=== PATIENT | female | born 1990 | race Caucasian/White ===

== ENCOUNTER 2016-06-13 12:10 | Day surgery (SDC) | payer OTHER ==
[~2016-06-13] VITALS: Ht 162.6 cm; Wt 79.4 kg
[~2016-06-13 12:10] MED LIST: 0.9% Sodium Chloride 1,000 ML IV PRN; INUL1TAB3 PO; LACT1TAB11 PO; MULT1CAP33 PO; OMEP20TA24 PO; Sodium Chloride LOK Flush 10 mL Syringe IV PRN; fentaNYL-PF 50 mCg/mL 2 mL Inj IVPUSH PRN
[2016-06-13 13:38] VITALS: BP 121/68; PULSE 67; RESP 16; O2SAT 100
--- NOTE | 2016-06-13 14:59 | PCM.ENDCOL ---
Colonoscopy Date of Service: Jun 13, 2016 Physician Adam King MD Pre Procedure Diagnosis: Blood in the stools constipation Post Procedure Dx & Findings: Hemorrhoids Procedure Colonoscopy PROCEDURE IN DETAIL: Prep adequate Withdrawal time 9 minutes After unremarkable rectal examination the Olympus video colonoscope was inserted patient's anal canal and was advanced to cecum. Landmarks were identified including the ileocecal valve and appendiceal orifice. Scope was withdrawn systematically. Visualized colonic mucosa showed healthy shiny mucosa with normal healthy-appearing vasculature. We advanced 10 cm the terminal ileum which showed normal villous structure without ulcer or mass erosion. In the ileocecal valve, there was a 1 mm erosion which was biopsied using cold forceps. In the rectum retroflexion was done which showed hemorrhoids. Anal canal was inspected carefully on the way out and hemorrhoids noted. Impression 1 mm erosion at the IC valve. Normal TI Hemorrhoids Recommendation Repeat colonoscopy in 50 years old if There is no family history of colon cancer or polyp. Presedation Assessment Risks and Benefits Informed consent was obtained from the patient after all risks and benefits including but not limited to drug reaction, infection, pain, bleeding, perforation, as well as alternatives were discussed. Patient monitoring Continuous pulse oximetry, cardiac monitoring, blood pressure monitoring, IV access, and oxygen at 2L per nasal cannula. Periprocedural Fentanyl: Fentanyl 125mcg Incrementally Midazolam: Midazolam 7mg Incrementally Complications There were no periprocedural complications identified. Post Procedure Plan Post Procedure Recommendations 1. Restrict activities today. 2. Resume normal activities in the morning. 3. Resume medications. 4. Patient informed of normal post procedure side effects as bloating, drowsiness, blood streaking in the stool. 5. average risk CRCS. If colon polyps come back as: -Hyperplastic- can repeat colonoscopy in 10 years -Tubular adenoma- repeat colonoscopy in 5 years -Tubulovillous/villous adenoma- repeat colonoscopy in 3 years -If any dysplasia- return to clinic as soon as possible 6. Please don't hesitate to call me with any questions. Adam King MD Jun 13, 2016 14:59
[2016-06-13 15:06] VITALS: BP 104/50; PULSE 75; RESP 16; O2SAT 98
[2016-06-13 15:27] VITALS: BP 102/53; PULSE 74; RESP 16; O2SAT 100
[2016-06-13 15:36] VITALS: BP 120/66; PULSE 64; RESP 16; O2SAT 100
--- NOTE | 2016-06-15 15:08 | PATH ---
SURGICAL PATHOLOGY Attending Physician:Adam King M.D. CASE STATUS: Signed Out PATIENT NAME: ZONIA KIRBY PID: [id number] : 1990 DATE COLLECTED:06/13/2016 00:00 SPECIMEN: Small Intestine/Bowel, Biopsy CLINICAL HISTORY: EROSION 1). ILEAL CECAL VALVE FINAL DIAGNOSIS: 1.ILEOCECAL VALVE, BIOPSY: SMALL BOWEL MUCOSA WITH PROMINENT BENIGN LYMPHOID AGGREGATES CONSISTENT WITH PEYER' S PATCH. Negative for active inflammation, dysplasia or malignancy. ICD10 code R10.9 GROSS DESCRIPTION: The specimen is received in one formalin filled container labeled with the patient's name, sublabeled "ileal cecal erosion" and consists of a 0.2 x 0.2 x 0.2 CM portion of tissue which is entirely submitted in one cassette. 06/14/2016 DAC MICRO DESCRIPTION: See diagnosis. ICD-9 CODES: CPT CODES: 1: 43082 Electronically Signed Out Anamaria Huff MD [facility]ly [facility] Pathology [facility] [address], [place] [address] Technical component performed at [facility], [facility] [address], [place], [address]
== END 2016-06-13 23:59 | disposition home or self-care (01) ==
LOC: END 12:10
PROVIDERS: ATTEND Internal Medicine
DX: K92.1 Melena (principal); R10.9 Unspecified abdominal pain; K64.8 Other hemorrhoids; E11.9 Type 2 diabetes mellitus without complications; Z79.899 Other long term (current) drug therapy
CPT/HCPCS: 45380; 88305; 99153; G0500; J2250; J3010; J7030